=== PATIENT | male | born 1990 | race Caucasian/White ===

== ENCOUNTER 2019-06-26 21:06 | Emergency (ER) | payer BC ==
[~2019-06-26] VITALS: Ht 172.7 cm; Wt 70.3 kg
--- NOTE | 2019-06-26 21:50 | NUR ---
Dr. Erazo at bedside for MSE.
[2019-06-26] MEDS ORDERED: ALBUTEROL SULFATE 2.5 MG/3 ML NEBU ONE (21:59)
[2019-06-26] MEDS ORDERED: ALBUTEROL SULFATE 2.5 MG/3 ML NEBU NEB ONE (22:00)
--- NOTE | 2019-06-26 22:00 | NUR ---
Respiratory at bedside.
[2019-06-26 22:19] VITALS: BP 115/94
--- NOTE | 2019-06-26 22:19 | NUR ---
Patient discharged to home in stable conditon. Written and verbal after care instructions given. Patient verbalizes understanding of instructions. Pt ambulated out of ER with steady gait, no acute signs of distress, VSS, all belongings taken.
== END 2019-06-26 22:45 | disposition home or self-care (01) ==
LOC: ER 21:09
DX: J40 Bronchitis, not specified as acute or chronic (principal)
CPT/HCPCS: A4663